=== PATIENT | male | born 1980 | race Hispanic/Latino ===

== ENCOUNTER 2023-10-08 15:28 | Inpatient (IN) | payer SELFPAY ==
[~2023-10-08] VITALS: Ht 180.3 cm; Wt 90.7 kg
[2023-10-08 16:25] LABS: BASOPHILS % 0.3 % (0.0-1.0); HEMATOCRIT 50.1 % (38.2-49.6); HEMOGLOBIN 17.7 g/dL (14.0-18.0); LYMPHOCYTES # (AUTO) 0.6 (1.0-3.2); LYMPHOCYTES % 4.5 % (18.0-39.1); MEAN CORPUSCULAR HEMOGLOBIN 30.6 pg (28-32); MEAN CORPUSCULAR HGB CONC 35.3 g/dL (31-35); MEAN CORPUSCULAR VOLUME 86.5 fL (81-99); MONOCYTES # (AUTO) 0.5 (0.2-0.8); MONOCYTES % 3.5 % (4.4-11.3); NEUTROPHILS # (AUTO) 11.7 (2.1-6.9); NEUTROPHILS % 91.3 % (38.7-80.0); PLATELET COUNT 150 x10e3/uL (140-360); RED BLOOD COUNT 5.79 x10e6/uL (4.3-5.7)
[2023-10-08] MEDS: SODIUM CHLORIDE 0.9% 1000ML 1,000 ML IV STA (16:27)
[2023-10-08] MEDS: Morphine 4mg INJECTION 4 MG/ML INJ IV ONE (16:28)
[2023-10-08] MEDS: ONDANSETRON HCL INJ 2MG/ML 2ML 2 MG/ML VIAL IV STA (16:28)
[2023-10-08 16:31] LABS: BILIRUBIN,URINE MODERATE (NEGATIVE); CLARITY,URINE CLOUDY (CLEAR); COLOR,URINE BROWN (YELLOW); GLUCOSE, URINE NEGATIVE (NEGATIVE); KETONES,URINE 1+ (NEGATIVE); LEUKOCYTE ESTERASE ,URINE LARGE (NEGATIVE); NITRITE,URINE NEGATIVE (NEGATIVE); PH,URINE 6 (5 - 7); PROTEIN,URINE DIPSTICK 2+ (NEGATIVE); URINE UROBILINOGEN 2 mg/dL (0.2 - 1)
[2023-10-08 16:36] LABS: PROTHROMBIN TIME 13.9 seconds (11.9-14.5)
[2023-10-08 16:37] LABS: PARTIAL THROMBOPLASTIN TIME 30.2 seconds (23.8-35.5)
[2023-10-08 16:42] LABS: ALANINE AMINOTRANSFERASE 40 IU/L (0-55); ALBUMIN 3.7 g/dL (3.5-5.0); ALBUMIN/GLOBULIN RATIO 0.8 (0.8-2.0); ALKALINE PHOSPHATASE 93 IU/L (40-150); ANION GAP 16.7 mmol/L (8-16); BILIRUBIN,TOTAL 0.7 mg/dL (0.2-1.2); BLOOD UREA NITROGEN 14 mg/dL (7-26); BUN/CREATININE RATIO 14 (6-25); CARBON DIOXIDE 20 mmol/L (22-29); CHLORIDE 106 mmol/L (98-107); CREATININE, SERUM 1.03 mg/dL (0.72-1.25); EST GLOMERULAR FILTRATION RATE 92 ML/MIN (>=60); GLUCOSE 152 mg/dL (74-118); MAGNESIUM 1.8 MG/DL (1.3-2.1); POTASSIUM 3.7 mmol/L (3.5-5.1); SODIUM 139 mmol/L (136-145); TOTAL PROTEIN 8.5 g/dL (6.5-8.1)
[2023-10-08 16:44] LABS: AMORPHOUS SEDIMENT,URINE MODERATE (FEW); BACTERIA,URINE MANY /HPF
[2023-10-08 16:50] LABS: TROPONIN I < 0.001 ng/mL (0-0.300)
[2023-10-08] MEDS: METRONIDAZOLE 500MG/NS 100ML 100 ML IV SCH (18:32)
[2023-10-08 18:59] VITALS: PULSE 71; RESP 19; TEMP 98.8
[2023-10-08] MEDS: SODIUM CHLORIDE 0.9% 1000ML 1,000 ML IV SCH (19:35)
[2023-10-08] MEDS: HYDRALAZINE HCL 20 MG/ML VIAL IV PRN (21:42)
[2023-10-08] MEDS ORDERED: LOSARTAN POTASS50 MG PO (22:16)
[2023-10-08] MEDS ORDERED: TIZANIDINE HCL4 MG PO (22:16)
[2023-10-08 22:19] VITALS: BP 174/92; PULSE 78; RESP 18; TEMP 98.1; O2SAT 100
[2023-10-09] VITALS (8 sets, daily range): BP systolic 159–198; BP diastolic 91–115; PULSE 73–85; RESP 16–19; TEMP 98.1–99.2; O2SAT 98–100
[2023-10-09 06:00] LABS: BASOPHILS % 0.5 % (0.0-1.0); EOSINOPHILS % 0.2 % (0.0-6.0); HEMATOCRIT 43.2 % (38.2-49.6); HEMOGLOBIN 14.9 g/dL (14.0-18.0); LYMPHOCYTES # (AUTO) 1.3 (1.0-3.2); LYMPHOCYTES % 16.1 % (18.0-39.1); MEAN CORPUSCULAR HEMOGLOBIN 30.5 pg (28-32); MEAN CORPUSCULAR HGB CONC 34.5 g/dL (31-35); MEAN CORPUSCULAR VOLUME 88.3 fL (81-99); MONOCYTES # (AUTO) 0.6 (0.2-0.8); MONOCYTES % 6.9 % (4.4-11.3); NEUTROPHILS # (AUTO) 6.3 (2.1-6.9); NEUTROPHILS % 76.1 % (38.7-80.0); PLATELET COUNT 133 x10e3/uL (140-360); RED BLOOD COUNT 4.89 x10e6/uL (4.3-5.7); RED CELL DISTRIBUTION WIDTH 12.9 % (11.7-14.4); WHITE BLOOD COUNT 8.25 x10e3/uL (4.8-10.8)
[2023-10-09 06:25] LABS: ALBUMIN 3.1 g/dL (3.5-5.0); ALBUMIN/GLOBULIN RATIO 0.8 (0.8-2.0); ANION GAP 13.9 mmol/L (8-16); BILIRUBIN,TOTAL 0.6 mg/dL (0.2-1.2); CALCIUM 8.4 mg/dL (8.4-10.2); CREATININE, SERUM 0.89 mg/dL (0.72-1.25); POTASSIUM 3.9 mmol/L (3.5-5.1)
[2023-10-09] MEDS: Morphine 4mg INJECTION 4 MG/ML INJ IV PRN (08:20)
[2023-10-09] MEDS: ONDANSETRON HCL INJ 2MG/ML 2ML 2 MG/ML VIAL IV PRN (18:23)
[2023-10-10] VITALS (9 sets, daily range): BP systolic 140–181; BP diastolic 89–107; PULSE 59–103; RESP 17–18; TEMP 98.1–98.8; O2SAT 98–100
[2023-10-10 05:34] LABS: BASOPHILS % 0.4 % (0.0-1.0); EOSINOPHILS # (AUTO) 0.1 (0.0-0.4); EOSINOPHILS % 0.6 % (0.0-6.0); HEMATOCRIT 44.9 % (38.2-49.6); HEMOGLOBIN 15.4 g/dL (14.0-18.0); LYMPHOCYTES # (AUTO) 1.9 (1.0-3.2); LYMPHOCYTES % 23.6 % (18.0-39.1); MEAN CORPUSCULAR HEMOGLOBIN 30.1 pg (28-32); MEAN CORPUSCULAR HGB CONC 34.3 g/dL (31-35); MEAN CORPUSCULAR VOLUME 87.7 fL (81-99); MONOCYTES # (AUTO) 0.9 (0.2-0.8); MONOCYTES % 10.9 % (4.4-11.3); NEUTROPHILS # (AUTO) 5.2 (2.1-6.9); NEUTROPHILS % 64.1 % (38.7-80.0); PLATELET COUNT 146 x10e3/uL (140-360); RED BLOOD COUNT 5.12 x10e6/uL (4.3-5.7); RED CELL DISTRIBUTION WIDTH 12.7 % (11.7-14.4); WHITE BLOOD COUNT 8.11 x10e3/uL (4.8-10.8)
[2023-10-10 06:22] LABS: ANION GAP 14.4 mmol/L (8-16); CALCIUM 8.7 mg/dL (8.4-10.2); CREATININE, SERUM 0.86 mg/dL (0.72-1.25)
[2023-10-10 06:29] LABS: POTASSIUM 3.4 mmol/L (3.5-5.1)
[2023-10-10] MEDS: POTASSIUM CHLORIDE 10MEQ/100ML 100 ML IV ONE (13:09)
[2023-10-11] VITALS (9 sets, daily range): BP systolic 145–184; BP diastolic 86–103; PULSE 55–76; RESP 18; TEMP 97.6–98.6; O2SAT 98–100
[2023-10-11 05:44] LABS: ANION GAP 15.8 mmol/L (8-16); CALCIUM 8.7 mg/dL (8.4-10.2); CREATININE, SERUM 0.81 mg/dL (0.72-1.25); POTASSIUM 3.8 mmol/L (3.5-5.1)
[2023-10-11] MEDS: LOSARTAN POTASSIUM 100 MG TAB PO SCH (11:05)
[2023-10-11] MEDS: ACETAMINOPHEN 325 MG TAB PO PRN (11:39)
[2023-10-12] VITALS: BP 168/100; PULSE 72; RESP 18; TEMP 98.2; O2SAT 99
[2023-10-12 04:00] VITALS: BP 148/96; PULSE 79; RESP 18; TEMP 98; O2SAT 98
[2023-10-12 08:27] VITALS: BP 183/100; PULSE 75; RESP 16; TEMP 98; O2SAT 99
[2023-10-12 09:58] VITALS: BP 183/100; PULSE 75; RESP 16; TEMP 98; O2SAT 99
[2023-10-12 13:44] VITALS: BP 177/108; PULSE 72; RESP 17; TEMP 97.9; O2SAT 99
[2023-10-12] MEDS: LOSARTAN POTASSIUM 25 MG TAB PO SCH (17:46)
[2023-10-12 20:54] VITALS: BP 158/95; PULSE 92; RESP 17; TEMP 98.1; O2SAT 86
[2023-10-12] MEDS: CLONIDINE HCL 0.1 MG TAB PO PRN (21:14)
[2023-10-13] VITALS (8 sets, daily range): BP systolic 141–155; BP diastolic 77–96; PULSE 60–85; RESP 16–20; TEMP 97.9–98.7; O2SAT 98–100
[2023-10-13 06:26] LABS: ANION GAP 13.4 mmol/L (8-16); CALCIUM 8.7 mg/dL (8.4-10.2); CREATININE, SERUM 0.79 mg/dL (0.72-1.25); POTASSIUM 3.4 mmol/L (3.5-5.1)
[2023-10-13 06:41] LABS: BASOPHILS # (AUTO) 0.1 (0.0-0.1); BASOPHILS % 0.7 % (0.0-1.0); EOSINOPHILS # (AUTO) 0.2 (0.0-0.4); EOSINOPHILS % 2.8 % (0.0-6.0); HEMATOCRIT 45.5 % (38.2-49.6); HEMOGLOBIN 16.2 g/dL (14.0-18.0); LYMPHOCYTES # (AUTO) 2.4 (1.0-3.2); LYMPHOCYTES % 35.1 % (18.0-39.1); MEAN CORPUSCULAR HEMOGLOBIN 30.5 pg (28-32); MEAN CORPUSCULAR HGB CONC 35.6 g/dL (31-35); MEAN CORPUSCULAR VOLUME 85.7 fL (81-99); MONOCYTES # (AUTO) 0.5 (0.2-0.8); MONOCYTES % 7.3 % (4.4-11.3); NEUTROPHILS # (AUTO) 3.7 (2.1-6.9); NEUTROPHILS % 53.4 % (38.7-80.0); PLATELET COUNT 231 x10e3/uL (140-360); RED BLOOD COUNT 5.31 x10e6/uL (4.3-5.7); RED CELL DISTRIBUTION WIDTH 12.8 % (11.7-14.4); WHITE BLOOD COUNT 6.87 x10e3/uL (4.8-10.8)
[2023-10-13] MEDS ORDERED: LOSARTAN POTAS100 MG PO (16:17)
[2023-10-13] MEDS ORDERED: AMOX TR-K CLV1 EAC2 PO (16:17)
[2023-10-13] MEDS: POTASSIUM CHLORIDE 20 MEQ TAB CR PO ONE (18:27)
[2023-10-14] MEDS ORDERED: HYDROCHLOROTHIAZIDE 25 MG TAB PO SCH (09:00)
== END 2023-10-13 19:09 | disposition home or self-care (01) | DRG 872 ==
LOC: ER 16:25 → ERHOLD 19:15 → MED/SURG3 21:50
PROVIDERS: ADMIT Internal Medicine; ATTEND Internal Medicine
PROC: 3E0333Z Introduction of Anti-inflammatory into Peripheral Vein, Percutaneous Approach (ICD-10-PCS; principal; 2023-10-08)
DX: A41.9 Sepsis, unspecified organism (principal); K57.92 Diverticulitis of intestine, part unspecified, without perforation or abscess without bleeding; N32.1 Vesicointestinal fistula; N39.0 Urinary tract infection, site not specified; I10 Essential (primary) hypertension; E87.6 Hypokalemia; R39.89 Other symptoms and signs involving the genitourinary system; Z11.52 Encounter for screening for COVID-19; B96.20 Unspecified Escherichia coli [E. coli] as the cause of diseases classified elsewhere; Z90.49 Acquired absence of other specified parts of digestive tract; Z82.49 Family history of ischemic heart disease and other diseases of the circulatory system
CPT/HCPCS: 36415; 71045; 74177; 80048; 80053; 81001; 83605; 83735; 84484; 85025; 85610; 85730; 87040; 87086; 87186; 99284; J0360; J2270; J2405; J2470; J2543; J3480; J7030; U0002